=== PATIENT | male | born 1965 | race Caucasian/White ===

== ENCOUNTER → 2019-11-26 10:36 | Outpatient (BNVA) | payer SELFPAY | PROVIDERS: Family Provider Family Medicine; PCP Family Medicine; Visit Provider Family Medicine | DX: J09.X2 Influenza due to identified novel influenza A virus with other respiratory manifestations (principal); J45.21 Mild intermittent asthma with (acute) exacerbation; R05 Cough | CPT/HCPCS: 87804 ==